=== PATIENT | male | born 1955 | race Caucasian/White ===

== ENCOUNTER 2016-07-07 04:58 | Emergency (ER) | payer SELFPAY ==
[~2016-07-07] VITALS: Ht 182.9 cm; Wt 123.0 kg
[2016-07-07 05:04] VITALS: BP 141/92; PULSE 110; RESP 20; TEMP 97.9; O2SAT 99
[2016-07-07 05:15] VITALS: BP 141/92; PULSE 110; RESP 20; TEMP 97.9
--- NOTE | 2016-07-07 05:21 | PD ---
HPI Chief Complaint: medicationrefill Time Seen by Provider: 05:16 Travel History International Travel<30 days: No Contact w/Intl Traveler<30days: No Traveled to known affect area: No History of Present Illness HPI 60-year-old male presents to the emergency department by private transportation the care of his mother for evaluation of feeling anxious as he identified that he was out of his inhaler this morning. Patient states yesterday his air conditioner broken while sleeping on his couch he awakened just prior to arrival to the emergency department feeling as if he was having an asthma attack. Patient went into another room and said the air conditioning and his symptoms seemed to dissipate. Patient has history of asthma and also has history of environmental and seasonal allergens that precipitated his asthma. Patient states that he has not had a medication refill and 3 years for his albuterol. Patient is a nonsmoker. Patient's had no fever no chills no nausea no vomiting no cough no sore throat no chest pain no abdominal pain or other complaints. Patient does however note that 3 weeks ago he was having some difficulty with his right ear and since trying to clean out his ear he has noted some diminished hearing. No report of bloody drainage from the ear and denies any discomfort with the left ear. Patient does not have any sore throat or other complaints denies any sinus pressure drainage. Patient states he presents here because he needs a refill of his medication and while he is here he would like his right ear evaluated. [facility] Past Medical History Narrative Medical Dyslipidemia asthma obesity; no tobacco use; nursing notes reviewed Social History Tobacco Use: No Allergies-Medications (Allergen,Severity, Reaction): Coded Allergies: No Known Allergies (Unverified , 07/07/16) Reported Meds & Prescriptions Reported Meds & Active Scripts Active Proair Hfa 8.5 GM Inh (Albuterol Sulfate) 90 Mcg/Act Aer 2 Puff INH Q4-6H PRN 108 mcg/actuation Reported D3 (Cholecalciferol) 1,000 Unit Cap PO DAILY Chlorpheniramine (Chlorpheniramine Maleate) 4 Mg Tab 4 Mg PO Q4H PRN Review of Systems Except as stated in HPI: all other systems reviewed are Neg Physical Exam Narrative GENERAL: Well-developed well-nourished male in no acute distress no respiratory distress SKIN: Warm and dry. HEAD: Normocephalic. EYES: No scleral icterus. No injection or drainage. ENT: Mucous membranes moist poor dentition bilateral tympanic membrane evaluation impaired by cerumen. NECK: Supple, trachea midline. No JVD or lymphadenopathy. CARDIOVASCULAR: Regular rate and rhythm without murmurs, gallops, or rubs. RESPIRATORY: Breath sounds equal bilaterally. No accessory muscle use. GASTROINTESTINAL: Abdomen soft, non-tender, nondistended. MUSCULOSKELETAL: No cyanosis, or edema. BACK: Nontender without obvious deformity. No CVA tenderness. Data Data Last Documented VS Vital Signs Date Time Temp Pulse Resp B/P Pulse Ox O2 Delivery O2 Flow Rate FiO2 07/07/16 05:32 96 20 123/93 97 Room Air 07/07/16 05:15 97.9 Orders Ear Irrigation (07/07/16 05:21) [facility] Medical Decision Making Medical Screen Exam Complete: Yes Emergency Medical Condition: Yes Medical Record Reviewed: Yes Differential Diagnosis Medication refill, asthma, rhinosinusitis, cerumen impaction Narrative Course Patient requesting albuterol inhaler refill and ear evaluation; patient identified to have cerumen in both ears but only complains of diminished hearing and irritation of the right ear that shows no evidence of external auditory canal induration or narrowing of the canal or other foreign body debris. Ordered cerumen irrigation. Presently patient not having any diminished breath sounds or wheezing. Room air O2 saturation 99% patient was noted to have mild increased heart rate of reports he is very anxious about being out of his inhaler. Post irrigation no erythema edema or perforation noted; patient stable for outpatient management Diagnosis Primary Impression: Medication refill Additional Impression: Impacted cerumen of right ear Referrals: Primary Care Physician call for appointment Patient Instructions: General Instructions Additional Instructions: Take medications as prescribed Return to the emergency department for any concerns or change in condition Follow-up with primary care provider Med/Other Pt SpecificInfo: Prescription(s) given Scripts Albuterol 8.5 GM Inh (Proair Hfa 8.5 GM Inh)90 Mcg/Act Aer2 Puff INH Q4-6H PRN ( SHORTNESS OF BREATH) #1 INHALER Ref 0 108 mcg/actuation Prov:Abril Sharma MD 07/07/16 Disposition: 01 DISCHARGE HOME Condition: Stable Abril Sharma MD Jul 07, 2016 05:21
[2016-07-07] MEDS ORDERED: ALBUAER3 INH (05:22)
[2016-07-07 05:32] VITALS: BP 123/93; PULSE 96; RESP 20; O2SAT 97
[2016-07-07] MEDS ORDERED: D31000CA PO (05:39)
[2016-07-07] MEDS ORDERED: CHLO4TAB2 PO (05:39)
[2016-07-07] MEDS ORDERED: VENTAER INH (06:21)
== END 2016-07-07 06:27 | disposition home or self-care (01) ==
LOC: PHED 04:58
DX: J45.909 Unspecified asthma, uncomplicated (principal); H61.21 Impacted cerumen, right ear; Z79.899 Other long term (current) drug therapy; E78.5 Hyperlipidemia, unspecified; E66.9 Obesity, unspecified
CPT/HCPCS: 99283